=== PATIENT | female | born 1970 | race Caucasian/White ===

== ENCOUNTER 2021-06-22 16:57 | Outpatient (REF) | payer MEDICAID, SELFPAY ==
[2021-06-22 18:21] LABS: Carbamazepine Tegretol < 2.0 mcg/mL (5.0-12.0); Valproate 18.4 mcg/mL (50.0-100.0)
== END 2021-06-22 16:58 | disposition home or self-care (01) ==
LOC: HO.LAB 16:57
PROVIDERS: Visit Provider Psychiatry & Neurology Neurology
DX: G40.909 Epilepsy, unspecified, not intractable, without status epilepticus (principal); Z79.899 Other long term (current) drug therapy
CPT/HCPCS: 36415; 80156; 80164

== ENCOUNTER 2023-04-11 11:24 | Outpatient (REF) | payer OTHER, SELFPAY ==
[2023-04-11 12:56] LABS: Valproate 25.9 mcg/mL (50.0-100.0)
== END 2023-04-11 11:25 | disposition home or self-care (01) ==
LOC: HO.LAB 11:24
PROVIDERS: PCP Nurse Practitioner Family; Visit Provider Psychiatry & Neurology Neurology
DX: G40.909 Epilepsy, unspecified, not intractable, without status epilepticus (principal); Z79.899 Other long term (current) drug therapy
CPT/HCPCS: 36415; 80164

== ENCOUNTER 2025-04-18 09:03 | Outpatient (AMB) | payer OTHER, SELFPAY ==
--- NOTE | 2025-04-18 09:11 | A.OFFVIS_ITS ---
Vital Signs 04/18/25 09:24 Height 5 ft 3 in Weight 217 lb BMI 38.4 Intake Visit Reasons: MS Allergies No Known Allergies Allergy (Verified 04/18/25 09:16) Medication List - Last Reconciled 04/18/25 by Corina Lerner CNP carbamazepine 200 mg PO BID cetirizine 10 mg PO DAILY docusate sodium 100 mg PO BID omeprazole 20 mg PO DAILY HPI Comments Details: No definite seizures. No LOC or falls. Taking carbamazepine 200mg 1 tab twice a day, denies missing any doses. She was having some occasional dizziness that lasts about 15 minutes. She had some dizziness yesterday when walking down stairs that resolved within a few minutes. Some occasional left sided headaches relieved with Advil. Sleep was a little better. Forgetful at times. She continues to report difficulty losing weight and reporting knee pain which she attributes to excess weight. She was apparently told by PCP to ask about prescription for weight loss medication from this office. [facility]: 220lb, current weight: 217lb. Had some dizziness and twitching movements a few days before tooth extraction on 09/14/2024. Has been off Depakote since 02/2024. Feels she is still gaining weight, although she has lost weight since 03/2024 according to our records, weight recorded at 03/13/2024 appointment: 235lb. Energy and concentration is not so good. Dizzy when she takes a hot shower at times. Partner in his sleep from [place] in 09/2021, still depressed. Occasional twitching sz, unclear how often, no LOC. Some episodes of urinary urgency and incontinence with coughing. Occasionally spacing out. EEG shows frequent generalized epileptiform discharges. No major convulsions since 2016. She started having seizures at age 19. She says that she spaces out, sometimes drops things, and twitches. She'll sometimes have a bad headache before and after. In the past, she has tried Keppra, which produced side effects. She was on Dilantin at one time. She said that Depakote worked the best for her but her last neurologist at [facility] took her off and tried Keppra. In 2006, she had a seizure when she fell off a chair. Her daughter and her mother had seizures. [facility] Medical History (Updated 04/18/25 @ 09:14 by Corina Lerner CNP) MARIXA (obstructive sleep apnea) Seizure disorder Review of Systems Const Denies chills, Denies daytime sleepiness, Reports difficulty sleeping, Denies fatigue, Denies fever(s), Denies frequent falls, Denies headache(s), Denies increased appetite, Denies poor appetite, Denies snoring, Denies weakness, Denies weight gain and Denies weight loss Eyes Denies loss of vision ENT Denies vertigo, Denies dizziness, Denies headache(s) and Denies neck pain Card Denies chest pain at rest, Denies chest pain with activity, Denies syncope, Denies leg edema, Denies palpitations, Denies dyspnea and Denies dyspnea on exertion Resp Denies cough, Denies dyspnea, Denies dyspnea on exertion and Denies snoring GI Denies abdominal pain, Denies constipation, Denies heartburn, Denies diarrhea and Denies nausea Denies urinary frequency, Denies urinary incontinence and Denies urinary urgency Musc Denies abnormal gait, Denies back pain, Denies myalgias, Denies arthralgias, Denies neck pain, Denies numbness and Denies tingling Neuro Denies abnormal gait, Denies vertigo, Denies dizziness, Denies syncope, Denies frequent falls, Denies headache(s), Denies lack of coordination, Denies loss of vision, Denies memory loss, Denies numbness, Denies Other visual disturbances, Denies restless legs, Reports seizure-like activity, Denies tingling, Denies paresthesias, Denies tremor(s) and Denies weakness Psych Reports anxiety, Denies depression, Denies auditory hallucinations, Denies memory loss and Denies visual hallucinations Endo Denies fatigue and Denies palpitations Physical Exam Vital Signs: BMI result Body Mass Index 38.4 Const Other: General Appearance:? normal, in no acute distress. Heart:? S1, S2 normal, no murmurs. Lungs:? clear anteriorly and posteriorly. Musculoskeletal:? normal. Extremities:? no edema. Psych:? alert, oriented, cognitive function intact, cooperative with exam. Neuro Other: Abnormal Neurological Findings:?Hyperreflexia in LE? Mental Status: alert and oriented X 3. Normal attention, orientation, memory, and affect. Cranial Nerves: Pupils are equal, round, and reactive to light. External ocular muscles are intact. Visual becerra are full, no ptosis. Face is symmetrical, no facial weakness or droop. Facial sensations are normal. Tongue protrudes in midline. Palate elevates symmetrically. Shoulder shrugging is normal Motor Examination: Normal muscle tone, bulk and strength. No atrophy or fasciculations. No drift of the extended upper extremities. DTR 3+. Plantars are flexor. Sensory Exam: Normal light touch, temperature, pinprick, vibration, and joint- position sensations. Rhomberg sign is absent. Coordination: No ataxia. No titubation. Mcbpie-fp-owos, mupd-eikk-akke test, and rapid alternating movements were normal. Gait Exam: Within normal limits. Cerebellar Signs: Unxbti-so-nwln and vbcp-bv-atfa is normal. No dysdia dochokinesia. Extrapyramidal System: No tremor, rigidity with normal facial expressions. No bradykinesia. No bradyphrenia. Normal arm swing and posture. No propulsion or retropulsion. Speech: Normal. No dysphasia or dysarthria. Results Reviewed Results Reviewed: 04/03/2020 EEG WNL Assessment & Plan Assessment & Plan (1) Seizure disorder: Code(s): G40.909 - Epilepsy, unspecified, not intractable, without status epilepticus Category: Medical Plan: No definite seizures with carbamazepine and medication was continued. Continue carbamazepine 200mg 1 tablet twice a day. She was very concerned with weight and this was most of her focus. She was informed that since switching to carbamazepine from Depakote, she has lost weight according to our records (235lbs in 03/2024 to 217lb today). She was asking about starting weight loss medication. She was informed this office specializes in neurological care, for which she is being seen here for seizure disorder and prescribed carbamazepine, and this office does not provide weight management. From a neurological standpoint, she may try medications to help with weight loss. She was encouraged to discuss starting medication for weight loss with PCP, or may benefit from referral to weight management clinic. Plan Meds tried: Dilantin, Keppra, Depakote (weight gain, hair loss - off since 02/2024) Medications: Changed From carbamazepine 200 mg PO BID To carbamazepine 200 mg PO BID 180 tabs 1RF 90 days Coding Level of Care Code Est Pt Level 4 (61581) Diagnoses Seizure disorder G40.909
--- OUTSIDE RECORDS SUMMARY | 2025-04-18 09:21 | XMS_ITS | Clinical Summary ---
Author Organization [facility] Facility Address [address] [place] [address] Care Team Providers Care Analytics Architect Name Role Phone Mamie Sierra Primary Care Provider Social History Tobacco Use Types Packs/Day Years Used Date Smoking Tobacco: Never Assessed Comments Unknown Sex and Gender Information Value Date Recorded Sex Assigned at Not on file Legal Sex Female 1:22 PM EST Gender Identity Not on file Sexual Orientation Not on file Plan of Treatment Health Maintenance Due Date Last Done Comments Breast Cancer Screening 1970 Hepatitis B Vaccine (1 of 3 - 19+ 3-dose series) 02/02 Colorectal Cancer Screening: Annual FOBT 02/03/2020 Colorectal Cancer Screening: Colonoscopy 02/03/2020 Colorectal Cancer Screening: Sigmoidoscopy 02/03/2020 Pneumococcal Vaccine: 50+ Years (1 of 1 - PCV) 021 Influenza Vaccine (#1) 2025 Insurance Medicaid [place] Care Teams Analytics Architect Relationship Specialty Start Date End Date Mamie Sierra FNP [address] [place] [address], [address] [place] [address] PCP - General Nurse Practitioner 10/22/22
--- OUTSIDE RECORDS SUMMARY | 2025-04-18 09:21 | XMS_ITS | Encounter Summary ---
Author Organization [facility] Address [address] [place] [address] Phone Care Team Providers Care Psychiatric Specialist Name Role Phone Mamie Sierra DATABASE DBA Primary Care Provider [phone] Encounter Details Date Type Department Care Team (Late st Contact Info) Description 02/13/2024 Procedure Pass [facility] - [address] [place] [address] Social History Tobacco Use Types Packs/Day Years Used Date Smoking Tobacco: Former Cigarettes Q uit: 2018 Smokeless Tobacco: Never Comments:none recently Alcohol Use Standard Drinks/Week Comments No 0 (1 standard drink = 0.6 oz pur e alcohol) Child or Family Care Answer Date Record ed Do you have problems with on e of the following making it difficult for you to work, study, or receive health care? I choose not to answer 02/13/2024 Education Answer Date Recorded Are you interested in help w ith more adult education (for example, completing high school, GED, job training, learning the Turkish language, technical skills, or developing parenting skills)? No 02/13/2024 Are you concerned about learning? Not on file 02/13/2024 No 02/13/2024 Yes 02/13/2024 Food Answer Date Recorded Within the past 6 months we worried whether our food would run out before we got money to buy more. Never True 02/13/2024 Within the past 6 months the food we bought just didn't last and we didn't have enough money to get more. Never True Residential Stability Answer Date Recor ded What is your housing situation today? I have caroline cervantes 02/13/2024 How many times have you move d in the past 12 months? Zero (I did not move) 02/13/2024 Paying for Meds Answer Date Recorded Do you have trouble paying for medicines? Yes 02/13/2024 Paying Utility Bills Answer Date Record ed Do you have trouble paying your heating or elect ricity bill? Yes 02/13/2024 Transportation Answer Date Recorded Has the lack of transportati on kept you from medical appointments or from getting medications? Yes 02/13/2024 Digital Access Answer Date Recorded No 02/13/2024 Yes 02/13/2024 Do you have reliable internet access at home? Ye s 02/13/2024 Do you have a device (e.g., phone, tablet, computer) with a working camera? Yes 02/13/2024 SNAP & WIC Answer Date Recorded Do you receive benefits from SNAP (the Supplemental Nutrition Assistance Program) or the Food Stamp Program? Yes 02/13/2024 SNAP is a free program, interested in learning m ore? Not on file 02/13/2024 Can we help you enroll in SNAP? Not on file 02/13/2024 Benefits received from WIC? Not on file 02/03 WIC is a free program, interested in learning mo re? Not on file 02/13/2024 Can we help you enroll in WIC? Not on file 0 02/13/2024 Intimate Partner Violence Answer Date R ecorded Denied Basic Needs Not on file 02/13/2024 In the past 12 months have y ou been in a relationship with a person who hurts, threatens, or tries to control you? No 02/13/2024 Worried food would run out Not on file 02/12 In the past 12 months have y ou been in a relationship with a person who hurts, threatens, or tries to control you? No 02/13/2024 Comments No Sex and Gender Information Value Date Recorded Sex Assigned at Female 01/25/2018 4:27 PM EDT Legal Sex Female 9:34 PM EDT Gender Identity Female 01/25/2018 4:27 PM EDT Sexual Orientation Straight 01/25/2018 4: 27 PM EDT documented as of this encounter Plan of Treatment Upcoming Encounters Date Type Department Care Team (Late st Contact Info) Description 04/29/2025 10:15 AM EDT Nurse Only [facility] [address] [facility] [place] [address] Mariela Mamie AMARILIS Koch [address] [facility], [facility] [address] [place] [address] [email or web address] documented as of this encounter Visit Diagnoses Not on filedocumented in this encounter Additional Health Concerns Assessment Noted Time PHQ-2 Depression Total Score: 2 02/13/20 24 9:18 AM EDT documented as of this encounter Care Teams Psychiatric Specialist Relationship Specialty Start Date End Date Mamie Sierra FNP [address] [facility] [address] [place] [address] [email or web address] PCP - General Family Medicine 02/10/23 documented as of this encounter Additional Source Comments The information contained in this document represents components of the legal health record. It is not the complete legal health record.[facility]
[2025-04-18 09:24] VITALS: BMI 38.4
== END 2025-04-18 09:39 | disposition home or self-care (01) ==
PROVIDERS: PCP Family Medicine; Visit Provider Registered Nurse
DX: G40.909 Epilepsy, unspecified, not intractable, without status epilepticus (principal)
CPT/HCPCS: 99214